=== PATIENT | female | born 1995 | race Caucasian/White ===

== ENCOUNTER 2018-07-03 00:52 | Emergency (ER) | payer OTHER ==
[2018-07-03 01:07] VITALS: BMI 23.9
--- NOTE | 2018-07-03 01:44 | PDOC ---
History of Present Illness - General Chief Complaint: Ear Problem Stated Complaint: EARACHE Time Seen by Provider: 07/03/18 01:44 History Source: Patient - History of Present Illness Initial Comments: 07/03/18 02:53 23-year-old female complaining of left ear pain, chills, fever, throat pain for 3 days. Patient reports that the ear pain is worse despite Tylenol every 4 hours and ibuprofen every 6 hours at home. Denies drooling, hot potato voice or unilateral throat swelling. Past History - Past Medical History Allergies/Adverse Reactions: Allergies Allergy/AdvReac Type Severity Reaction Status Date / Time No Known Allergies Allergy Verified 07/03/18 01:56 Home Medications: Ambulatory Orders Ibuprofen 400 mg PO QID PRN #14 tablet 07/03/18 Ofloxacin Otic [Floxin Otic -] 10 drop OT BID #1 bottle 07/03/18 - Suicide/Smoking/Psychosocial Hx Smoking History: Unknown if ever smoked Review of Systems - Review of Systems Able to Perform ROS?: Yes Is the patient limited [place] proficient: No Constitutional: Yes: Fever HEENTM: Yes: Ear Pain, Nose Congestion, Throat Pain Respiratory: No: Symptoms reported, See HPI, Cough, Orthopnea, Shortness of Breath, SOB with Exertion, SOB at Rest, Stridor, Wheezing, Productive cough, Hemoptysis, Other Cardiac (ROS): No: Symptoms Reported, See HPI, Chest Pain, Edema, Irregular Heart Rate, Lightheadedness, Palpitations, Syncope, Chest Tightness, Other *Physical Exam - Vital Signs Last Vital Signs Temp Pulse Resp BP Pulse Ox 97.8 F 89 18 126/76 100 07/03/18 01:03 07/03/18 01:03 07/03/18 01:03 07/03/18 01:03 07/03/18 01:03 - Physical Exam General Appearance: Yes: Appropriately Dressed HEENT: positive: Tonsillar Exudate, Tonsillar Erythema, Other (No unilateral swelling. Gross pharyngeal erythema. Positive cervical lymphadenopathy. Left TM dull with otitis externa.) Neck: positive: Other (no drooling) Respiratory/Chest: positive: Lungs Clear, Normal Breath Sounds Extremity: positive: Normal Capillary Refill, Normal Inspection, Normal Range of Motion Moderate Sedation - Procedure Monitoring Vital Signs: Procedure Monitoring Vital Signs Temperature 97.8 F 07/03/18 01:03 Pulse Rate 89 07/03/18 01:03 Respiratory Rate 18 07/03/18 01:03 Blood Pressure 126/76 07/03/18 01:03 O2 Sat by Pulse Oximetry (%) 100 07/03/18 01:03 *DC/Admit/Observation/Transfer Diagnosis at time of Disposition: Pharyngitis Qualifiers: Pharyngitis/tonsillitis etiology: streptococcus Qualified Code(s): J02.0 - Streptococcal pharyngitis Otitis externa Qualifiers: Otitis externa type: diffuse Chronicity: acute Laterality: left Qualified Code( s): H60.312 - Diffuse otitis externa, left ear - Discharge Dispostion Disposition: HOME - Prescriptions Prescriptions: Ibuprofen 400 mg PO QID PRN #14 tablet PRN Reason: Pain Ofloxacin Otic [Floxin Otic -] 10 drop OT BID #1 bottle - Referrals - Patient Instructions Printed Discharge Instructions: DI for Strep Throat Additional Instructions: Gargle with warm salty water Take ibuprofen every 6 hours as needed for pain. use ofloxacin twice daily to left ear Return immediately to the emergency room if symptoms worsen. - Post Discharge Activity Forms/Work/School Notes: Back to Work
--- NOTE | 2018-07-03 01:48 | PDOC ---
*Physical Exam - Vital Signs Last Vital Signs Temp Pulse Resp BP Pulse Ox 97.8 F 89 18 126/76 100 07/03/18 01:03 07/03/18 01:03 07/03/18 01:03 07/03/18 01:03 07/03/18 01:03 Medical Decision Making - Medical Decision Making 07/03/18 01:47 Patient seen by the advanced practice provider under my direct supervision. Ancillary testing reviewed as necessary. I agree with plan as outlined by the advanced practice provider. *DC/Admit/Observation/Transfer Diagnosis at time of Disposition: Pharyngitis Qualifiers: Pharyngitis/tonsillitis etiology: streptococcus Qualified Code(s): J02.0 - Streptococcal pharyngitis Otitis externa Qualifiers: Otitis externa type: diffuse Chronicity: acute Laterality: left Qualified Code( s): H60.312 - Diffuse otitis externa, left ear - Discharge Dispostion Disposition: HOME - Prescriptions Prescriptions: Ibuprofen 400 mg PO QID PRN #14 tablet PRN Reason: Pain Ofloxacin Otic [Floxin Otic -] 10 drop OT BID #1 bottle - Referrals - Patient Instructions Printed Discharge Instructions: DI for Strep Throat Additional Instructions: Gargle with warm salty water Take ibuprofen every 6 hours as needed for pain. use ofloxacin twice daily to left ear Return immediately to the emergency room if symptoms worsen. - Post Discharge Activity Forms/Work/School Notes: Back to Work
[2018-07-03] MEDS ORDERED: oxyCODONE HCL 5 MG TABLET PO ONE (01:59)
[2018-07-03] MEDS ORDERED: oxyCODONE HCL 5 MG TABLET ONE (02:07)
[2018-07-03] MEDS ORDERED: PENICILLIN G BENZATHINE 1,200,000 UNIT/2 ML PFS IM ONE ×2 (02:20→03:06)
[2018-07-03] MEDS: OFLOXACIN 0.3% OTIC SOLUTION 5 ML BOTTLE AU ONE ×2 (03:01→03:30)
[2018-07-03] MEDS ORDERED: OFLOXACIN 0.3% OTIC SOLUTION 5 ML BOTTLE AS ONE (03:10)
[2018-07-03] MEDS: DEXAMETHASONE 4 MG TABLET (FP) PO ONE ×2 (03:28→03:30)
[2018-07-03 03:45] VITALS: BP 121/74; PULSE 80; TEMP 98.1
== END 2018-07-03 03:42 | disposition home or self-care (01) ==
LOC: JER 00:52
DX: J02.0 Streptococcal pharyngitis (principal); H60.312 Diffuse otitis externa, left ear
CPT/HCPCS: 87880; 99281-25